=== PATIENT | male | born 1950 | race Caucasian/White ===

== ENCOUNTER 2022-12-25 09:00 | Outpatient (RCR) | payer MEDICARE, SELFPAY | END 2023-02-04 11:54 | disposition home or self-care (01) | PROVIDERS: PCP Family Medicine; Visit Provider Family Medicine | DX: M25.512 Pain in left shoulder (principal); G89.29 Other chronic pain; R53.1 Weakness; Z74.09 Other reduced mobility; Z51.89 Encounter for other specified aftercare | CPT/HCPCS: 97110; 97140; 97161 ==